=== PATIENT | male | born 1935 | race Caucasian/White ===

== ENCOUNTER 2017-03-22 17:31 | Inpatient (IN) | payer MEDICARE, BC ==
[2017-03-22] VITALS (152 sets, daily range): BP systolic 124–133; BP diastolic 85–89; PULSE 91–92; TEMP 98–98.3; O2SAT 93–97
[~2017-03-22] VITALS: Ht 172.7 cm; Wt 101.6 kg
[~2017-03-22 17:31] MED LIST: ALDACTONE 25MG25 M1 PO; ALEVE 220MG220 MG PO; ASPIR-LOW81 MG PO; CALCIUM 600MG+D1 TAB PO; COUMADIN 22.5 MG/TAB PO; ESCITALOPRAM; HALCION 0.0.125 MG/T PO; LEXAPRO20 MG PO; MILLIPRED DP5 MG PO; PERCOCET 325 MG1 TA2 PO; PREDNISONE 5MG5 MG PO; PREDNISONE10 MG PO; PRILOSEC10 MG PO; PROTONIX 40MG T40 MG PO; TOPROL; TYLENOL 500MG500 MG PO; ULTRAM 50MG TAB50 MG PO; XARELTO STARTER20 MG PO; ZOCOR 10MG10 MG PO; [UNRECOGNIZED DRUG - CODE]
[2017-03-22] MEDS ORDERED: XANAX .25M0.25 MG/TA PO (17:49)
[2017-03-22] MEDS ORDERED: REGLAN 5MG T5 MG/TAB PO (17:50)
[2017-03-22] MEDS ORDERED: PREDNISONE10 MG PO (17:51)
[2017-03-22] MEDS ORDERED: OMEGA-31 SGL PO (17:55)
[2017-03-22 18:05] LABS: BASO % 0.3 % (0.0-2.0); EOS # 0.1 (0.0-0.7); EOS % 0.7 % (0-4.0); GRAN # 10.8 (1.4-6.5); GRAN % 74.8 % (42.2-75.2); HEMATOCRIT 47.2 % (42.0-52.0); HEMOGLOBIN 15.3 g/dl (13.5-18.0); LYMPH # 2.5 (1.2-3.4); LYMPH % 17.1 % (20.0-51.0); MEAN CELL VOLUME 85 fl (80.0-100.0); MEAN CORPUSCULAR HEMOGLOBIN 28 pg (27.0-31.0); MEAN CORPUSCULAR HGB CONC 32 g/dl (33.0-37.0); MEAN PLATELET VOLUME 9.6 fl (7.4-10.4); MONO # 0.9 (0.1-0.6); MONO % 5.9 % (1.7-9.3); PLATELET COUNT 133 K/mm3 (130-400); RED BLOOD COUNT 5.54 M/mm3 (4.20-5.60); REDCELL DISTRIBUTION WIDTH-CV 14.8 % (11.5-14.5); WHITE BLOOD COUNT 14.4 K/mm3 (4.8-10.8)
[2017-03-22 18:09] LABS: INR 1.1 (0.8-3.0); PROTHROMBIN TIME 12.3 SECONDS (9.7-12.8)
[2017-03-22 18:12] LABS: PARTIAL THROMBOPLASTIN TIME 24.3 SECONDS (26.0-37.0)
[2017-03-22 18:15] LABS: ADJUSTED CALCIUM 9.4 mg/dL (8.4-10.2); ALBUMIN 3.6 gm/dL (3.5-5.0); BILIRUBIN,TOTAL 0.6 mg/dL (0.0-1.0); CALCIUM 9.1 mg/dL (8.4-10.2); CREATININE, serum 0.92 mg/dL (0.66-1.25); TOTAL PROTEIN 6.9 gm/dL (6.4-8.2)
[2017-03-22 18:25] LABS: ARTERIAL BLD GAS O2 SATURATION 94.9 % (92-100); ARTERIAL BLD GAS TCO2 CT 22.7; ARTERIAL BLOOD GAS BASE EXCESS -1.6 (-2-2); ARTERIAL BLOOD GAS HCO3 21.7 meq/L (22-26); ARTERIAL BLOOD GAS PHT 7.44 C (7.35-7.45); ARTERIAL BLOOD GAS PO2 74.1 mmHg (80-100); ARTERIAL BLOOD GAS PO2T 74.1 (80-100); ARTERIAL BLOOD GAS pH 7.44 (7.35-7.45); OXYHEMOGLOBIN 94.1 %
[2017-03-22 18:27] LABS: ATS? YES
[2017-03-22 18:28] LABS: TROPONIN-I 0.13 ng/mL (0.000-0.034)
[2017-03-23] VITALS (621 sets, daily range): BP systolic 96–143; BP diastolic 77–91; PULSE 72–93; TEMP 97.6–98.9; O2SAT 87–97
[2017-03-23 06:21] LABS: BASO % 0.2 % (0.0-2.0); EOS # 0.1 (0.0-0.7); EOS % 0.7 % (0-4.0); GRAN # 8.3 (1.4-6.5); HEMATOCRIT 42.5 % (42.0-52.0); HEMOGLOBIN 13.6 g/dl (13.5-18.0); LYMPH # 2.8 (1.2-3.4); LYMPH % 21.9 % (20.0-51.0); MEAN CELL VOLUME 86 fl (80.0-100.0); MEAN CORPUSCULAR HEMOGLOBIN 28 pg (27.0-31.0); MEAN CORPUSCULAR HGB CONC 32 g/dl (33.0-37.0); MEAN PLATELET VOLUME 9.7 fl (7.4-10.4); MONO # 1.4 (0.1-0.6); MONO % 11.2 % (1.7-9.3); PLATELET COUNT 137 K/mm3 (130-400); RED BLOOD COUNT 4.93 M/mm3 (4.20-5.60); REDCELL DISTRIBUTION WIDTH-CV 15.1 % (11.5-14.5); WHITE BLOOD COUNT 12.8 K/mm3 (4.8-10.8)
[2017-03-23 06:38] LABS: CALCIUM 9.3 mg/dL (8.4-10.2); CREATININE, serum 0.94 mg/dL (0.66-1.25); POTASSIUM 4.2 mmol/L (3.4-5.0)
[2017-03-23 06:54] LABS: TROPONIN-I 1.6 ng/mL (0.000-0.034)
[2017-03-24] MEDS ORDERED: MIRALAX PA17 GM/Dose PO (01:13)
[2017-03-24] MEDS ORDERED: LIQUIFILM TEARS15 ML OU (01:18)
[2017-03-24 04:19] VITALS: BP 141/79; PULSE 80; TEMP 98.7
[2017-03-24 07:52] VITALS: BP 138/83; PULSE 73; TEMP 97.8
[2017-03-24 10:52] LABS: PROTEIN C ACTIVITY 117 % (70-150)
[2017-03-24 12:36] LABS: PROTEIN S ACTIVITY 181 % (65-149)
[2017-03-24 13:06] VITALS: BP 144/97; PULSE 92; TEMP 97.6
[2017-03-24 15:34] VITALS: BP 120/85; PULSE 92; TEMP 97.8
[2017-03-24 19:58] VITALS: BP 120/78; PULSE 90; TEMP 98.4
[2017-03-24 23:46] VITALS: BP 137/83; PULSE 73; TEMP 98.7
[2017-03-25 03:27] VITALS: BP 134/77; PULSE 65; TEMP 97.5
[2017-03-25 07:04] LABS: BASO % 0.2 % (0.0-2.0); EOS # 0.1 (0.0-0.7); EOS % 0.8 % (0-4.0); GRAN # 6.9 (1.4-6.5); GRAN % 65.2 % (42.2-75.2); HEMATOCRIT 41.7 % (42.0-52.0); HEMOGLOBIN 13.4 g/dl (13.5-18.0); LYMPH # 2.2 (1.2-3.4); LYMPH % 20.6 % (20.0-51.0); MEAN CELL VOLUME 86 fl (80.0-100.0); MEAN CORPUSCULAR HEMOGLOBIN 28 pg (27.0-31.0); MEAN CORPUSCULAR HGB CONC 32 g/dl (33.0-37.0); MEAN PLATELET VOLUME 9.7 fl (7.4-10.4); MONO # 1.3 (0.1-0.6); MONO % 12.3 % (1.7-9.3); PLATELET COUNT 133 K/mm3 (130-400); RED BLOOD COUNT 4.85 M/mm3 (4.20-5.60); WHITE BLOOD COUNT 10.5 K/mm3 (4.8-10.8)
[2017-03-25 07:08] LABS: INR 1.3 (0.8-3.0); PROTHROMBIN TIME 14.2 SECONDS (9.7-12.8)
[2017-03-25 08:02] VITALS: BP 149/84; PULSE 67; TEMP 97.5
[2017-03-25 09:03] LABS: CALCIUM 9.2 mg/dL (8.4-10.2); CREATININE, serum 0.85 mg/dL (0.66-1.25); POTASSIUM 4.2 mmol/L (3.4-5.0)
[2017-03-25 09:28] LABS: FACTOR V LEIDEN MUTATION B Negative (Negative)
[2017-03-25 10:56] LABS: VON WILLEBRAND FACTOR ANTIGEN 427 % (55 - 200)
[2017-03-25 11:29] VITALS: BP 127/61; PULSE 73; TEMP 97.6
[2017-03-25 16:11] VITALS: BP 153/88; BP 161/96; PULSE 88; TEMP 98
[2017-03-25 19:52] VITALS: BP 149/76; PULSE 69; TEMP 98.3
[2017-03-25 22:55] VITALS: BP 112/48; BP 134/86; PULSE 59; PULSE 73; TEMP 98.2
[2017-03-26 03:03] VITALS: BP 137/86; PULSE 70; TEMP 98.3
[2017-03-26 07:20] LABS: HEMATOCRIT 39.5 % (42.0-52.0); HEMOGLOBIN 12.8 g/dl (13.5-18.0)
[2017-03-26 08:02] VITALS: BP 126/73; PULSE 67; TEMP 98
[2017-03-26 08:23] LABS: INR 1.4 (0.8-3.0); PROTHROMBIN TIME 15.9 SECONDS (9.7-12.8)
[2017-03-26 11:59] VITALS: BP 155/92; PULSE 89; TEMP 97.6
[2017-03-26 15:36] LABS: .ANTICARDIOLIPIN IGG <9.4 GPL (())
[2017-03-26 16:14] VITALS: BP 155/76; PULSE 74; TEMP 98.6
[2017-03-26 20:40] VITALS: BP 116/87; PULSE 82; TEMP 97.5
[2017-03-27 00:10] VITALS: BP 133/74; PULSE 73; TEMP 97.6
[2017-03-27 04:23] VITALS: BP 143/101; PULSE 73; TEMP 98.7
[2017-03-27 07:58] VITALS: BP 133/83; PULSE 88; TEMP 98.3
[2017-03-27 08:37] LABS: CREATININE, serum 0.82 mg/dL (0.66-1.25); POTASSIUM 3.9 mmol/L (3.4-5.0)
[2017-03-27 11:05] VITALS: BP 162/77; PULSE 85; TEMP 98.3
[2017-03-27 15:56] VITALS: BP 136/90; PULSE 99
[2017-03-27 19:46] VITALS: BP 136/78; PULSE 89; TEMP 97.8
[2017-03-28] VITALS (7 sets, daily range): BP systolic 110–156; BP diastolic 77–93; PULSE 73–89; TEMP 93–98.2
[2017-03-28 07:05] LABS: BASO # 0.1 (0.0-0.2); BASO % 0.4 % (0.0-2.0); EOS # 0.2 (0.0-0.7); EOS % 1.5 % (0-4.0); GRAN % 63.2 % (42.2-75.2); HEMATOCRIT 39.3 % (42.0-52.0); HEMOGLOBIN 12.8 g/dl (13.5-18.0); LYMPH # 2.8 (1.2-3.4); LYMPH % 21.8 % (20.0-51.0); MEAN CELL VOLUME 85 fl (80.0-100.0); MEAN CORPUSCULAR HEMOGLOBIN 28 pg (27.0-31.0); MEAN CORPUSCULAR HGB CONC 33 g/dl (33.0-37.0); MEAN PLATELET VOLUME 10.9 fl (7.4-10.4); MONO # 1.5 (0.1-0.6); MONO % 11.9 % (1.7-9.3); PLATELET COUNT 168 K/mm3 (130-400); RED BLOOD COUNT 4.64 M/mm3 (4.20-5.60); REDCELL DISTRIBUTION WIDTH-CV 14.9 % (11.5-14.5); WHITE BLOOD COUNT 12.6 K/mm3 (4.8-10.8)
[2017-03-28 08:11] LABS: INR 4.5 (0.8-3.0); PROTHROMBIN TIME 53.5 SECONDS (9.7-12.8)
[2017-03-29] VITALS (9 sets, daily range): BP systolic 106–149; BP diastolic 47–81; PULSE 55–104; TEMP 97.7–98.5
[2017-03-29 07:53] LABS: BASO % 0.4 % (0.0-2.0); EOS # 0.3 (0.0-0.7); EOS % 3.1 % (0-4.0); GRAN # 6.5 (1.4-6.5); GRAN % 58.5 % (42.2-75.2); HEMATOCRIT 37.7 % (42.0-52.0); HEMOGLOBIN 12.3 g/dl (13.5-18.0); LYMPH # 2.9 (1.2-3.4); MEAN CELL VOLUME 85 fl (80.0-100.0); MEAN CORPUSCULAR HEMOGLOBIN 28 pg (27.0-31.0); MEAN CORPUSCULAR HGB CONC 33 g/dl (33.0-37.0); MEAN PLATELET VOLUME 10.2 fl (7.4-10.4); MONO # 1.2 (0.1-0.6); MONO % 10.6 % (1.7-9.3); PLATELET COUNT 167 K/mm3 (130-400); RED BLOOD COUNT 4.42 M/mm3 (4.20-5.60); REDCELL DISTRIBUTION WIDTH-CV 14.9 % (11.5-14.5); WHITE BLOOD COUNT 11.1 K/mm3 (4.8-10.8)
[2017-03-29 07:54] LABS: INR 5.7 (0.8-3.0); PROTHROMBIN TIME 67.5 SECONDS (9.7-12.8)
[2017-03-29 07:59] LABS: CREATININE, serum 0.89 mg/dL (0.66-1.25); POTASSIUM 3.5 mmol/L (3.4-5.0)
[2017-03-29 12:35] LABS: FACTOR II ACTIVITY 112 % (72-140)
[2017-03-30 04:19] VITALS: BP 150/70; PULSE 86; TEMP 98.6
[2017-03-30 07:19] VITALS: BP 131/74; PULSE 66; TEMP 97.9
[2017-03-30 07:42] LABS: BASO % 0.4 % (0.0-2.0); EOS # 0.3 (0.0-0.7); EOS % 2.5 % (0-4.0); GRAN # 6.3 (1.4-6.5); GRAN % 59.5 % (42.2-75.2); HEMATOCRIT 40.9 % (42.0-52.0); HEMOGLOBIN 13.2 g/dl (13.5-18.0); LYMPH # 2.8 (1.2-3.4); LYMPH % 26.3 % (20.0-51.0); MEAN CELL VOLUME 87 fl (80.0-100.0); MEAN CORPUSCULAR HEMOGLOBIN 28 pg (27.0-31.0); MEAN CORPUSCULAR HGB CONC 32 g/dl (33.0-37.0); MEAN PLATELET VOLUME 9.8 fl (7.4-10.4); MONO % 9.9 % (1.7-9.3); PLATELET COUNT 197 K/mm3 (130-400); RED BLOOD COUNT 4.73 M/mm3 (4.20-5.60); REDCELL DISTRIBUTION WIDTH-CV 15.1 % (11.5-14.5); WHITE BLOOD COUNT 10.6 K/mm3 (4.8-10.8)
[2017-03-30 07:46] LABS: INR 3.8 (0.8-3.0); PROTHROMBIN TIME 44.6 SECONDS (9.7-12.8)
[2017-03-30] MEDS ORDERED: LASIX 40MG TABL40 MG PO (07:51)
[2017-03-30 08:22] VITALS: BP 164/95; PULSE 78; TEMP 98.1
[2017-03-30] MEDS ORDERED: K-TAB20 PO (09:30)
[2017-03-30] MEDS ORDERED: COUMADIN 22.5 MG/TAB PO (09:32)
[2017-03-30 10:57] VITALS: BP 153/78; PULSE 93; TEMP 98.5
== END 2017-03-30 11:40 | disposition home health service (06) | DRG 175 ==
LOC: COL.ER 17:31 → IMCU 19:23 → MEDICAL 03-23 16:43
PROVIDERS: Emergency Medicine; Internal Medicine; Internal Medicine Cardiovascular Disease; Nurse Practitioner Family; Physician Assistant
DX: I26.99 Other pulmonary embolism without acute cor pulmonale (principal); I21.4 Non-ST elevation (NSTEMI) myocardial infarction; I50.23 Acute on chronic systolic (congestive) heart failure; I82.441 Acute embolism and thrombosis of right tibial vein; I82.411 Acute embolism and thrombosis of right femoral vein; M35.3 Polymyalgia rheumatica; Z85.46 Personal history of malignant neoplasm of prostate; M70.21 Olecranon bursitis, right elbow
CPT/HCPCS: 99232-AI; 99233-AI; 99239; A9502; G0103; J1650; J1940; J2212; J2785; J7512; Q9967

== ENCOUNTER 2017-11-27 18:47 | Emergency (ER) | payer MEDICARE, BC ==
[~2017-11-27] VITALS: Ht 20.3 cm; Wt 104.5 kg
[~2017-11-27 18:47] MED LIST changes: +K-TAB20 PO; +LASIX 40MG TABL40 MG PO; +LIQUIFILM TEARS15 ML OU; +MIRALAX PA17 GM/Dose PO; +OMEGA-31 SGL PO; +REGLAN 5MG T5 MG/TAB PO; +XANAX .25M0.25 MG/TA PO
[2017-11-27 18:55] VITALS: TEMP 98
[2017-11-27] MEDS ORDERED: COUMADIN 1MG1 MG/TAB PO (19:15)
[2017-11-27] MEDS ORDERED: METHOTREXA2.5 MG/TAB PO (19:16)
[2017-11-27 19:23] LABS: BASO % 0.2 % (0.0-2.0); GRAN # 9.9 (1.4-6.5); GRAN % 80.6 % (42.2-75.2); HEMATOCRIT 41.9 % (42.0-52.0); HEMOGLOBIN 13.4 g/dl (13.5-18.0); LYMPH # 1.7 (1.2-3.4); LYMPH % 14.2 % (20.0-51.0); MEAN CELL VOLUME 87 fl (80.0-100.0); MEAN CORPUSCULAR HEMOGLOBIN 28 pg (27.0-31.0); MEAN CORPUSCULAR HGB CONC 32 g/dl (33.0-37.0); MEAN PLATELET VOLUME 9.9 fl (7.4-10.4); MONO # 0.6 (0.1-0.6); MONO % 4.7 % (1.7-9.3); PLATELET COUNT 237 K/mm3 (130-400); RED BLOOD COUNT 4.81 M/mm3 (4.20-5.60); REDCELL DISTRIBUTION WIDTH-CV 15.6 % (11.5-14.5)
[2017-11-27 19:25] LABS: INR 2.6 (0.8-3.0); PROTHROMBIN TIME 30.6 SECONDS (9.7-12.8)
[2017-11-27 19:31] LABS: ALBUMIN 4.2 gm/dL (3.5-5.0); BILIRUBIN,TOTAL 0.3 mg/dL (0.0-1.0); CALCIUM 9.4 mg/dL (8.4-10.2); CREATININE, serum 0.94 mg/dL (0.66-1.25); POTASSIUM 4.3 mmol/L (3.4-5.0); TOTAL PROTEIN 7.3 gm/dL (6.4-8.2)
[2017-11-27 19:40] LABS: ARTERIAL BLD GAS TCO2 CT 26.2; ARTERIAL BLOOD GAS BASE EXCESS 2.6 (-2-2); ARTERIAL BLOOD GAS HCO3 25.2 meq/L (22-26); ARTERIAL BLOOD GAS PCO2 32.8 mmHg (35-45); ARTERIAL BLOOD GAS PO2 77.4 mmHg (80-100)
[2017-11-27 20:37] VITALS: BP 117/98; PULSE 88
== END 2017-11-27 20:45 | disposition home or self-care (01) ==
LOC: COL.ER 18:47
PROVIDERS: Family Medicine
DX: R06.00 Dyspnea, unspecified (principal)

== ENCOUNTER → 2018-03-28 | Outpatient (CLI) | payer MEDICARE, BC ==
[~2018-03-28] MED LIST changes: +COUMADIN 1MG1 MG/TAB PO; +METHOTREXA2.5 MG/TAB PO
== END ==
LOC: COL.PUL 09:24
DX: R06.02 Shortness of breath (principal)

== ENCOUNTER → 2018-04-07 | Outpatient (CLI) | payer MEDICARE, BC | LOC: COL.PUL 12:58 | DX: R06.02 Shortness of breath (principal); Z87.891 Personal history of nicotine dependence | CPT/HCPCS: J7674 ==

== ENCOUNTER 2018-04-13 18:13 | Emergency (ER) | payer MEDICARE, BC ==
[~2018-04-13] VITALS: Ht 172.7 cm; Wt 100.0 kg
[2018-04-13 18:15] VITALS: TEMP 98.6
[2018-04-13 19:04] LABS: BASO % 0.1 % (0.0-2.0); EOS % 0.1 % (0-4.0); GRAN # 10.7 (1.4-6.5); GRAN % 76.7 % (42.2-75.2); HEMATOCRIT 44.1 % (42.0-52.0); HEMOGLOBIN 14.3 g/dl (13.5-18.0); LYMPH # 1.9 (1.2-3.4); LYMPH % 13.4 % (20.0-51.0); MEAN CELL VOLUME 86 fl (80.0-100.0); MEAN CORPUSCULAR HEMOGLOBIN 28 pg (27.0-31.0); MEAN CORPUSCULAR HGB CONC 32 g/dl (33.0-37.0); MEAN PLATELET VOLUME 9.2 fl (7.4-10.4); MONO # 1.1 (0.1-0.6); PLATELET COUNT 229 K/mm3 (130-400); RED BLOOD COUNT 5.15 M/mm3 (4.20-5.60); REDCELL DISTRIBUTION WIDTH-CV 18.8 % (11.5-14.5)
[2018-04-13 19:09] LABS: INR 1.9 (0.8-3.0); PROTHROMBIN TIME 21.5 SECONDS (9.7-12.8)
[2018-04-13] MEDS ORDERED: K-DUR20 MEQ PO (19:13)
[2018-04-13 19:30] LABS: ALBUMIN 3.9 gm/dL (3.5-5.0); BILIRUBIN,TOTAL 0.3 mg/dL (0.0-1.0); CALCIUM 9.5 mg/dL (8.4-10.2); CREATININE, serum 1.03 mg/dL (0.66-1.25); POTASSIUM 4.3 mmol/L (3.4-5.0); TOTAL PROTEIN 7.1 gm/dL (6.4-8.2)
[2018-04-13 20:09] VITALS: BP 137/88
[2018-04-13 20:45] VITALS: PULSE 72
== END 2018-04-13 20:45 | disposition home or self-care (01) ==
LOC: COL.ER 18:13
PROVIDERS: Emergency Medicine
DX: S51.812A Laceration without foreign body of left forearm, initial encounter (principal); R42 Dizziness and giddiness; K21.9 Gastro-esophageal reflux disease without esophagitis; Z23 Encounter for immunization; Z86.718 Personal history of other venous thrombosis and embolism; Z86.711 Personal history of pulmonary embolism; Z79.01 Long term (current) use of anticoagulants; W18.39XA Other fall on same level, initial encounter

== ENCOUNTER 2018-07-28 15:54 | Outpatient (RCR) | payer MEDICARE, BC ==
[~2018-07-28 15:54] MED LIST changes: +ASPIRIN E.C. 8181 MG PO; +BRILINTA90 MG PO; -COUMADIN 1MG1 MG/TAB PO; +FLOVENT 110MCG7.9 GM IH; +K-DUR20 MEQ PO; +LIPITOR 40MG TA40 MG PO; +NASACORT OTC NS; +OMEGA-3 1000 MG1 CAP PO; +TOPROL XL 25MG25 MG PO; +VENTOLIN0.09 MG IH
[2018-07-29] MEDS ORDERED: TOPROL XL 25MG25 MG PO (12:56)
[2018-07-29] MEDS ORDERED: PLAVIX 75MG TAB75 MG PO (13:07)
[2018-07-29] MEDS ORDERED: FOSAMAX 70MG TA70 MG PO (13:08)
[2018-07-29] MEDS ORDERED: LIPITOR 10MG10 MG PO (13:10)
[2018-07-29] MEDS ORDERED: AMOXICILLIN 50500 MG PO (13:10)
[2018-08-04] MEDS ORDERED: CEPHALEXIN500 M1 PO (11:59)
[2018-08-04] MEDS ORDERED: ASPIRIN 81M81 MG/TA2 PO (12:00)
[2018-08-04] MEDS ORDERED: PERCOCET 325 MG1 TA2 PO (12:00)
[2018-08-04] MEDS ORDERED: XANAX .25M0.25 MG/TA PO (12:01)
[2018-08-04] MEDS ORDERED: FERROUS SU325 MG/TAB PO (12:08)
[2018-08-06] MEDS ORDERED: DOXYCYCLINE 10100 MG PO (14:08)
[2018-08-06] MEDS ORDERED: CEPHALEXIN500 M1 PO (14:08)
[2018-08-29] MEDS ORDERED: BUSPAR10 MG PO (09:44)
[2018-08-29] MEDS ORDERED: 00186-0372-20 IH (09:54)
[2018-08-29] MEDS ORDERED: NATURAL IRON65 MG PO (09:56)
[2018-08-29] MEDS ORDERED: MELAT3MGTAB PO (09:59)
[2018-08-31] MEDS ORDERED: BETAPACE 80MG80 MG PO (09:28)
== END 2018-10-26 | disposition home or self-care (01) ==
LOC: COL.CR
DX: Z48.812 Encounter for surgical aftercare following surgery on the circulatory system (principal); Z95.5 Presence of coronary angioplasty implant and graft

== ENCOUNTER 2018-07-29 12:33 | Emergency (ER) | payer MEDICARE, BC ==
[2018-07-29 12:36] VITALS: TEMP 98.5
[2018-07-29 12:55] LABS: BASO % 0.1 % (0.0-2.0); GRAN # 14.6 (1.4-6.5); GRAN % 88.3 % (42.2-75.2); HEMATOCRIT 38.9 % (42.0-52.0); HEMOGLOBIN 12.7 g/dl (13.5-18.0); LYMPH % 6.2 % (20.0-51.0); MEAN CELL VOLUME 91 fl (80.0-100.0); MEAN CORPUSCULAR HEMOGLOBIN 30 pg (27.0-31.0); MEAN CORPUSCULAR HGB CONC 33 g/dl (33.0-37.0); MEAN PLATELET VOLUME 9.9 fl (7.4-10.4); MONO # 0.6 (0.1-0.6); MONO % 3.9 % (1.7-9.3); PLATELET COUNT 206 K/mm3 (130-400); RED BLOOD COUNT 4.29 M/mm3 (4.20-5.60); REDCELL DISTRIBUTION WIDTH-CV 16.6 % (11.5-14.5)
[2018-07-29] MEDS ORDERED: TOPROL XL 25MG25 MG PO (12:56)
[2018-07-29 13:06] LABS: ALBUMIN 3.8 gm/dL (3.5-5.0); BILIRUBIN,TOTAL 0.7 mg/dL (0.0-1.0); CALCIUM 9.1 mg/dL (8.4-10.2); CREATININE, serum 1.22 mg/dL (0.66-1.25); POTASSIUM 4.4 mmol/L (3.4-5.0); TOTAL PROTEIN 6.7 gm/dL (6.4-8.2)
[2018-07-29] MEDS ORDERED: PLAVIX 75MG TAB75 MG PO (13:07)
[2018-07-29 13:08] LABS: INR 1.2 (0.8-3.0); PROTHROMBIN TIME 13.5 SECONDS (9.7-12.8)
[2018-07-29] MEDS ORDERED: FOSAMAX 70MG TA70 MG PO (13:08)
[2018-07-29 13:10] LABS: PARTIAL THROMBOPLASTIN TIME 23.5 SECONDS (26.0-37.0)
[2018-07-29] MEDS ORDERED: AMOXICILLIN 50500 MG PO (13:10)
[2018-07-29] MEDS ORDERED: LIPITOR 10MG10 MG PO (13:10)
[2018-07-29 13:18] LABS: TROPONIN-I 0.086 ng/mL (0.000-0.034)
[2018-07-29 15:15] VITALS: BP 112/66; PULSE 82
== END 2018-07-29 15:21 | disposition home or self-care (01) ==
LOC: COL.ER 12:33
PROVIDERS: Emergency Medicine
DX: S41.112A Laceration without foreign body of left upper arm, initial encounter (principal); I10 Essential (primary) hypertension; I25.10 Atherosclerotic heart disease of native coronary artery without angina pectoris; Z98.890 Other specified postprocedural states; Z91.81 History of falling; Z79.01 Long term (current) use of anticoagulants; Z79.51 Long term (current) use of inhaled steroids; Z86.718 Personal history of other venous thrombosis and embolism; Z86.711 Personal history of pulmonary embolism; W19.XXXA Unspecified fall, initial encounter; Y92.009 Unspecified place in unspecified non-institutional (private) residence as the place of occurrence of the external cause
CPT/HCPCS: J7040

== ENCOUNTER 2018-08-06 11:39 | Emergency (ER) | payer MEDICARE, BC ==
[~2018-08-06] VITALS: Ht 172.7 cm; Wt 100.0 kg
[~2018-08-06 11:39] MED LIST changes: +AMOXICILLIN 50500 MG PO; +ASPIRIN 81M81 MG/TA2 PO; +CEPHALEXIN500 M1 PO; +FERROUS SU325 MG/TAB PO; +FOSAMAX 70MG TA70 MG PO; +LIPITOR 10MG10 MG PO; +PLAVIX 75MG TAB75 MG PO
[2018-08-06 11:46] VITALS: TEMP 98.5
[2018-08-06 12:56] LABS: BASO % 0.1 % (0.0-2.0); EOS # 0.1 (0.0-0.7); EOS % 0.6 % (0-4.0); GRAN # 8.9 (1.4-6.5); GRAN % 76.7 % (42.2-75.2); HEMOGLOBIN 10.6 g/dl (13.5-18.0); LYMPH # 1.5 (1.2-3.4); LYMPH % 12.4 % (20.0-51.0); MEAN CELL VOLUME 93 fl (80.0-100.0); MEAN CORPUSCULAR HEMOGLOBIN 29 pg (27.0-31.0); MEAN CORPUSCULAR HGB CONC 32 g/dl (33.0-37.0); MEAN PLATELET VOLUME 9.2 fl (7.4-10.4); MONO # 1.1 (0.1-0.6); MONO % 9.3 % (1.7-9.3); PLATELET COUNT 184 K/mm3 (130-400); REDCELL DISTRIBUTION WIDTH-CV 17.1 % (11.5-14.5)
[2018-08-06 12:58] LABS: INR 1.1 (0.8-3.0); PROTHROMBIN TIME 12.2 SECONDS (9.7-12.8)
[2018-08-06 12:59] LABS: HEMATOCRIT 33.3 % (42.0-52.0)
[2018-08-06 13:01] LABS: PARTIAL THROMBOPLASTIN TIME 21.8 SECONDS (26.0-37.0)
[2018-08-06 13:02] LABS: ALBUMIN 3.3 gm/dL (3.5-5.0); BILIRUBIN,TOTAL 0.7 mg/dL (0.0-1.0); CALCIUM 8.7 mg/dL (8.4-10.2); CREATININE, serum 0.85 mg/dL (0.66-1.25); POTASSIUM 4.3 mmol/L (3.4-5.0); TOTAL PROTEIN 5.9 gm/dL (6.4-8.2)
[2018-08-06] MEDS ORDERED: DOXYCYCLINE 10100 MG PO (14:08)
[2018-08-06] MEDS ORDERED: CEPHALEXIN500 M1 PO (14:08)
[2018-08-06 14:32] VITALS: BP 132/70; PULSE 80
== END 2018-08-06 14:33 | disposition home or self-care (01) ==
LOC: COL.ER 11:39
PROVIDERS: Emergency Medicine
DX: L03.114 Cellulitis of left upper limb (principal); I25.10 Atherosclerotic heart disease of native coronary artery without angina pectoris; Z86.711 Personal history of pulmonary embolism; Z86.718 Personal history of other venous thrombosis and embolism; Z79.82 Long term (current) use of aspirin; Z79.02 Long term (current) use of antithrombotics/antiplatelets

== ENCOUNTER 2018-08-29 08:17 | Inpatient (IN) | payer MEDICARE, BC ==
[~2018-08-29] VITALS: Ht 172.7 cm; Wt 96.8 kg
[~2018-08-29 08:17] MED LIST changes: +DOXYCYCLINE 10100 MG PO
[2018-08-29] MEDS ORDERED: BUSPAR10 MG PO (09:44)
[2018-08-29] MEDS ORDERED: 00186-0372-20 IH (09:54)
[2018-08-29] MEDS ORDERED: NATURAL IRON65 MG PO (09:56)
[2018-08-29] MEDS ORDERED: MELAT3MGTAB PO (09:59)
[2018-08-29 11:07] VITALS: BP 150/79; PULSE 71; TEMP 97.9
[2018-08-29 11:23] LABS: BASO % 0.1 % (0.0-2.0); EOS % 0.1 % (0-4.0); GRAN # 7.8 (1.4-6.5); GRAN % 82.6 % (42.2-75.2); HEMATOCRIT 37.8 % (42.0-52.0); HEMOGLOBIN 12.1 g/dl (13.5-18.0); LYMPH # 0.7 (1.2-3.4); LYMPH % 7.5 % (20.0-51.0); MEAN CELL VOLUME 93 fl (80.0-100.0); MEAN CORPUSCULAR HEMOGLOBIN 30 pg (27.0-31.0); MEAN CORPUSCULAR HGB CONC 32 g/dl (33.0-37.0); MEAN PLATELET VOLUME 9.5 fl (7.4-10.4); MONO # 0.8 (0.1-0.6); MONO % 8.4 % (1.7-9.3); PLATELET COUNT 149 K/mm3 (130-400); RED BLOOD COUNT 4.05 M/mm3 (4.20-5.60); REDCELL DISTRIBUTION WIDTH-CV 16.3 % (11.5-14.5)
[2018-08-29 11:41] LABS: ALBUMIN 3.3 gm/dL (3.5-5.0); BILIRUBIN,TOTAL 0.3 mg/dL (0.0-1.0); CALCIUM 8.6 mg/dL (8.4-10.2); CREATININE, serum 0.8 mg/dL (0.66-1.25); POTASSIUM 4.1 mmol/L (3.4-5.0)
[2018-08-29 12:10] LABS: THYROID STIMULATING HORMONE 1.34 uIU/mL (0.465-4.680)
[2018-08-29 15:39] VITALS: BP 124/65; PULSE 48; TEMP 97.8
[2018-08-29 20:55] VITALS: BP 154/86; PULSE 57; TEMP 97.4
[2018-08-30] VITALS (7 sets, daily range): BP systolic 108–150; BP diastolic 59–78; PULSE 45–76; TEMP 97.9–98.3
[2018-08-30 06:15] LABS: BASO % 0.1 % (0.0-2.0); EOS % 0.2 % (0-4.0); GRAN # 5.7 (1.4-6.5); GRAN % 70.6 % (42.2-75.2); HEMOGLOBIN 12.3 g/dl (13.5-18.0); LYMPH # 1.6 (1.2-3.4); LYMPH % 19.7 % (20.0-51.0); MEAN CELL VOLUME 91 fl (80.0-100.0); MEAN CORPUSCULAR HEMOGLOBIN 30 pg (27.0-31.0); MEAN CORPUSCULAR HGB CONC 32 g/dl (33.0-37.0); MEAN PLATELET VOLUME 9.6 fl (7.4-10.4); MONO # 0.7 (0.1-0.6); MONO % 8.3 % (1.7-9.3); PLATELET COUNT 148 K/mm3 (130-400); RED BLOOD COUNT 4.16 M/mm3 (4.20-5.60)
[2018-08-30 06:27] LABS: CALCIUM 8.8 mg/dL (8.4-10.2); CREATININE, serum 0.84 mg/dL (0.66-1.25); POTASSIUM 4.2 mmol/L (3.4-5.0)
[2018-08-31 01:31] VITALS: BP 112/52; PULSE 58; TEMP 97.4
[2018-08-31 05:08] VITALS: BP 124/53; PULSE 47; TEMP 98.3
[2018-08-31 08:15] VITALS: BP 118/68; PULSE 46; TEMP 98.2
[2018-08-31 09:12] LABS: CALCIUM 8.7 mg/dL (8.4-10.2); CREATININE, serum 0.87 mg/dL (0.66-1.25); MAGNESIUM 2.2 mg/dL (1.6-2.3)
[2018-08-31 09:28] LABS: POTASSIUM 4.3 mmol/L (3.4-5.0)
[2018-08-31] MEDS ORDERED: BETAPACE 80MG80 MG PO (09:28)
== END 2018-08-31 12:03 | disposition home health service (06) | DRG 310 ==
LOC: MEDICAL 08:17
DX: I48.0 Paroxysmal atrial fibrillation (principal); Z51.81 Encounter for therapeutic drug level monitoring; Z95.5 Presence of coronary angioplasty implant and graft; I25.10 Atherosclerotic heart disease of native coronary artery without angina pectoris; Z91.81 History of falling; G47.33 Obstructive sleep apnea (adult) (pediatric); E66.8 Other obesity; Z68.32 Body mass index [BMI] 32.0-32.9, adult; I10 Essential (primary) hypertension; Z86.718 Personal history of other venous thrombosis and embolism; Z85.46 Personal history of malignant neoplasm of prostate
CPT/HCPCS: J7512

== ENCOUNTER 2019-02-05 14:55 | Outpatient (RCR) | payer MEDICARE, BC ==
[~2019-02-05 14:55] MED LIST changes: +00186-0372-20 IH; +BETAPACE 80MG80 MG PO; +BUSPAR10 MG PO; +MELAT3MGTAB PO; +NATURAL IRON65 MG PO
[2019-02-12] MEDS ORDERED: RT ADVAIR 228 DISKUS (16:59)
[2019-02-12] MEDS ORDERED: FOSAMAX 70MG TA70 MG PO ×2 (17:00→20:35)
[2019-02-12] MEDS ORDERED: OMEGA-3 1000 MG1 CAP PO (17:02)
[2019-02-12] MEDS ORDERED: LASIX 40MG TABL40 MG PO (17:03)
[2019-02-12] MEDS ORDERED: CLARITIN 1010 MG/TAB PO (17:04)
[2019-02-12] MEDS ORDERED: INCRUSE EL62.5 MCG/A (17:04)
[2019-02-12] MEDS ORDERED: ATROVENTNS0.03% (17:04)
[2019-02-12] MEDS ORDERED: K-TAB20 PO (17:05)
[2019-02-12] MEDS ORDERED: OS-CAL 500 + D1 TAB (20:38)
[2019-02-13] MEDS ORDERED: RT ADVAIR 228 DISKUS IH (03:15)
[2019-02-14] MEDS ORDERED: RESTORIL 1515 MG/CAP PO (13:45)
[2019-02-14] MEDS ORDERED: NAMENDA5 MG PO (13:48)
== END 2019-02-18 | disposition home or self-care (01) ==
LOC: COL.CR
DX: Z48.812 Encounter for surgical aftercare following surgery on the circulatory system (principal); Z95.5 Presence of coronary angioplasty implant and graft

== ENCOUNTER 2019-02-12 16:23 | Observation (INO) | payer MEDICARE, BC ==
[~2019-02-12] VITALS: Ht 172.7 cm; Wt 97.6 kg
[2019-02-12 16:50] LABS: BASO % 0.4 % (0.0-2.0); EOS # 0.1 (0.0-0.7); EOS % 0.5 % (0-4.0); GRAN # 7.5 (1.4-6.5); HEMATOCRIT 45.1 % (42.0-52.0); HEMOGLOBIN 14.6 g/dl (13.5-18.0); LYMPH # 2.3 (1.2-3.4); LYMPH % 20.2 % (20.0-51.0); MEAN CELL VOLUME 91 fl (80.0-100.0); MEAN CORPUSCULAR HEMOGLOBIN 30 pg (27.0-31.0); MEAN CORPUSCULAR HGB CONC 32 g/dl (33.0-37.0); MEAN PLATELET VOLUME 9.9 fl (7.4-10.4); MONO # 1.3 (0.1-0.6); MONO % 11.2 % (1.7-9.3); PLATELET COUNT 187 K/mm3 (130-400); RED BLOOD COUNT 4.94 M/mm3 (4.20-5.60); REDCELL DISTRIBUTION WIDTH-CV 15.4 % (11.5-14.5)
[2019-02-12 16:53] LABS: INR 1.1 (0.8-3.0); PROTHROMBIN TIME 12.1 SECONDS (9.7-12.8)
[2019-02-12 16:59] LABS: ALANINE AMINOTRANSFERASE 20 U/L (21-72); ALBUMIN 3.9 gm/dL (3.5-5.0); ALKALINE PHOSPHATASE 50 U/L (50-136); ANION GAP 12 mmol/L (7-16); AST,SGOT 40 U/L (15-37); BILIRUBIN,TOTAL 0.8 mg/dL (0.0-1.0); BLOOD UREA NITROGEN 39 mg/dL (9-20); CALCIUM 9.1 mg/dL (8.4-10.2); CARBON DIOXIDE 26 mmol/L (22-30); CHLORIDE 104 mmol/L (98-107); CREATININE, serum 1.17 (0.66-1.25); GLUCOSE 132 mg/dL (74-106); SODIUM 142 mmol/L (137-145)
[2019-02-12] MEDS ORDERED: RT ADVAIR 228 DISKUS (16:59)
[2019-02-12] MEDS ORDERED: FOSAMAX 70MG TA70 MG PO ×2 (17:00→20:35)
[2019-02-12] MEDS ORDERED: OMEGA-3 1000 MG1 CAP PO (17:02)
[2019-02-12] MEDS ORDERED: LASIX 40MG TABL40 MG PO (17:03)
[2019-02-12] MEDS ORDERED: CLARITIN 1010 MG/TAB PO (17:04)
[2019-02-12] MEDS ORDERED: INCRUSE EL62.5 MCG/A (17:04)
[2019-02-12] MEDS ORDERED: ATROVENTNS0.03% (17:04)
[2019-02-12] MEDS ORDERED: K-TAB20 PO (17:05)
[2019-02-12 17:13] LABS: TROPONIN-I < 0.012 ng/mL (0.000-0.035)
[2019-02-12 19:00] LABS: COLLECTION METHOD CLEAN CATCH
[2019-02-12 19:10] LABS: MUCOUS Present /lpf; PH 5 (5-8); SQUAMOUS EPITHELIAL None Seen /hpf; URINE APPEARANCE Clear; URINE BACTERIA None Seen /hpf; URINE BILIRUBIN Negative (NEGATIVE); URINE BLOOD Negative (NEGATIVE); URINE COLOR Yellow; URINE GLUCOSE Negative (NEGATIVE); URINE KETONE Negative (NEGATIVE); URINE LEUKOCYTE ESTERASE Negative (NEGATIVE); URINE NITRATE Negative (NEGATIVE); URINE PROTEIN(semi-quant) Negative (NEGATIVE); URINE UROBILINOGEN Negative (NEGATIVE)
--- NOTE | 2019-02-12 20:25 | NUR ---
PT ARRIVED TO ROOM 314 ACCOMPANIED BY FAMILY
[2019-02-12 20:33] VITALS: BP 156/86; PULSE 55; TEMP 98.8
[2019-02-12] MEDS ORDERED: OS-CAL 500 + D1 TAB (20:38)
--- NOTE | 2019-02-12 22:54 | NUR ---
patient resting in relciner with family at bedside. Pt was agitated and pacing room, but is now resting his eyes in the recliner. Denies pain. Not oriented to place or time. No further needs at this time.
[2019-02-13 00:29] LABS: ARTERIAL BLD GAS O2 SATURATION 94.1 % (92-100); ARTERIAL BLD GAS TCO2 CT 23.2; ARTERIAL BLOOD GAS BASE EXCESS -0.7 (-2-2); ARTERIAL BLOOD GAS HCO3 22.2 meq/L (22-26); ARTERIAL BLOOD GAS PCO2 32.1 mmHg (35-45); ARTERIAL BLOOD GAS pH 7.46 (7.35-7.45)
[2019-02-13 00:38] VITALS: BP 154/80; PULSE 74; TEMP 98.2
[2019-02-13 00:57] LABS: MAGNESIUM 2.2 mg/dL (1.6-2.3)
[2019-02-13 01:27] LABS: TSH w REFLEX 1.25 uIU/mL (0.465-4.680)
[2019-02-13] MEDS ORDERED: RT ADVAIR 228 DISKUS IH (03:15)
[2019-02-13 03:19] VITALS: BP 127/64; PULSE 55; TEMP 98.2
--- NOTE | 2019-02-13 04:53 | NUR ---
Pt did not sleep much last night, up every 20-30 minutes to change positions or take of CPAP. Put on 2 L NC because pt would keep this on. IVF infusing at 75 mls/hr. Pt resting in recliner with chair alarm on. No further needs at this time.
[2019-02-13 06:22] LABS: BASO % 0.3 % (0.0-2.0); EOS # 0.2 (0.0-0.7); EOS % 2.2 % (0-4.0); GRAN % 64.6 % (42.2-75.2); HEMATOCRIT 43.8 % (42.0-52.0); HEMOGLOBIN 13.8 g/dl (13.5-18.0); LYMPH # 2.2 (1.2-3.4); LYMPH % 20.1 % (20.0-51.0); MEAN CELL VOLUME 93 fl (80.0-100.0); MEAN CORPUSCULAR HEMOGLOBIN 29 pg (27.0-31.0); MEAN CORPUSCULAR HGB CONC 32 g/dl (33.0-37.0); MEAN PLATELET VOLUME 10.1 fl (7.4-10.4); MONO # 1.3 (0.1-0.6); MONO % 12.1 % (1.7-9.3); PLATELET COUNT 153 K/mm3 (130-400); REDCELL DISTRIBUTION WIDTH-CV 15.5 % (11.5-14.5)
[2019-02-13 06:32] LABS: CALCIUM 8.6 mg/dL (8.4-10.2); CREATININE, serum 0.98 (0.66-1.25); POTASSIUM 3.7 mmol/L (3.4-5.0)
--- NOTE | 2019-02-13 07:07 | NUR ---
Received report from off going shift. Patient is in recliner with chair alarm in place. During report patient has been standing, alarm sounding without calling for assist. Denies pain. Call light and personal items are within reach.
--- NOTE | 2019-02-13 07:10 | NUR ---
report given to neel solano
[2019-02-13 07:46] VITALS: BP 128/72; PULSE 62; TEMP 97.9
--- NOTE | 2019-02-13 14:24 | NUR ---
REYNA met with the patient and patient's , Marlo, to discuss discharge plan. The patient lives in [place] with his . The patient's states that their daughter, Pau, lives in [facility] and that their other daughter, Rachel, lives in [facility] and will come down to help out. The patient reports needing occasional assistance with ADLs and has canes, a walking stick, walker, and a CPAP from [employer]. The patient reports that he has had home health services in the past through [facility]. The patient's PCP is Dr. Joesph Cramer and he receives his medications from [facility]. The patient and his report no difficulties obtaining his meds. The patient does not have advanced directives in EMR, but he states that he does have them completed. REYNA then discussed the concerns of the patient's confusion and falls and if he would be interested home health vs post-acute rehab. The patient reports that he feels like he can return home with home health and feels safe, but that him and his would like an update from the doctor or midlevel on his status. REYNA informed the patient's nurse practitioner, Juana. PT/OT have been ordered. SW to continue to follow to ensure a safe discharge.
--- NOTE | 2019-02-13 16:32 | NUR ---
The hospitalist, Dr. Hernandez, met with the patient and patient's to update them on the plan of care. The patient's informed Dr. Hernandez that she would like would like for the patient to return home with her and would be agreeable to home health. Dr. Hernandez updated SW. REYNA then followed up with the patient and patient's . The patient's confirmed plan. SW presented the patient's with [employer]'s list of home health agencies that serve [place]. The patient and patient's report they they have had services from [facility] in the past and chose them again. REYNA then contacted and faxed a referral to Yoshi at [facility]. Yoshi reports that he can meet with the patient tomorrow morning, 02/14. SW to continue to follow.
[2019-02-13 16:38] VITALS: BP 153/87; PULSE 93; TEMP 97.5
--- NOTE | 2019-02-13 18:23 | NUR ---
Patient is in room, has been sitting up in recliner. Does stand frequently setting off chair and bed alarm. Constant reminders are given for safety reasons. Call light and personal items are within reach.
[2019-02-13 18:56] VITALS: BP 136/84; PULSE 95; TEMP 97.3
--- NOTE | 2019-02-13 19:32 | NUR ---
Patient resting at side of bed. Pt confused, and refusing to stay in bed. Bed alarm on. When entering room and asked if pt needed anything pt denies. Back to bed. Order for seroquel given from LEROY Yanes. Patient now in bed, taken evening medications.
[2019-02-13 23:40] VITALS: BP 136/87; PULSE 106; TEMP 97.6
--- NOTE | 2019-02-14 00:46 | NUR ---
pt still not sleeping well, out of bed every 5-10 minutes. LEROY Yanes notified, order to give another dose of seroquel
[2019-02-14 03:49] VITALS: BP 134/73; PULSE 73; TEMP 97.5
[2019-02-14 07:04] VITALS: BP 146/79; PULSE 89; TEMP 98.3
--- NOTE | 2019-02-14 07:04 | NUR ---
Pt did not sleep for more than 45 minutes last night, given seroquel x2. Psyc consult for today. Bed alarm on, call light inreach. On 2 L oxygen via NC as pt did not tolerate home CPAP machine. Report given to DIANE Perez.
[2019-02-14 07:14] LABS: BASO % 0.3 % (0.0-2.0); EOS # 0.1 (0.0-0.7); EOS % 0.5 % (0-4.0); GRAN # 7.9 (1.4-6.5); HEMATOCRIT 42.3 % (42.0-52.0); HEMOGLOBIN 13.6 g/dl (13.5-18.0); LYMPH # 2.2 (1.2-3.4); LYMPH % 18.8 % (20.0-51.0); MEAN CELL VOLUME 91 fl (80.0-100.0); MEAN CORPUSCULAR HEMOGLOBIN 29 pg (27.0-31.0); MEAN CORPUSCULAR HGB CONC 32 g/dl (33.0-37.0); MEAN PLATELET VOLUME 10.8 fl (7.4-10.4); MONO # 1.4 (0.1-0.6); PLATELET COUNT 166 K/mm3 (130-400); RED BLOOD COUNT 4.65 M/mm3 (4.20-5.60)
--- NOTE | 2019-02-14 07:15 | NUR ---
Report received from DIANE Marcum. Pt sitting up at side of bed, alarm going off. Redirected pt back into bed, legs up, tray over lap, ordered his breakfast, alarms on, will continue to monitor.
[2019-02-14 07:30] LABS: CALCIUM 8.5 mg/dL (8.4-10.2); CREATININE, serum 0.93 (0.66-1.25); POTASSIUM 3.4 mmol/L (3.4-5.0)
--- NOTE | 2019-02-14 08:06 | NUR ---
Assessment charted. Pt sitting at side of bed finishing breakfast, ate very well, able to eat independently. Oriented to place and own but not oriented to time at all. Able to carry on a conversation but gets easily distracted and confused and cannot track well. Pulled own IV out this am, restarted new one in LFA. Pt denies pain. Moves all extremeties well. Bruising all over arms, R knee, R mccloud. Pt states he "falls a lot at home". Bed alarms on, will continue to monitor.
[2019-02-14 10:15] VITALS: BP 124/82; PULSE 102; TEMP 97.4
--- NOTE | 2019-02-14 10:15 | NUR ---
Pt fell in room at side of bed, states he "just decided to sit down on the floor". Redness to L flank. Able to get up with assistance of 3 and back to bed, alarms on. in room, David notified. ORders received. VSS. Denies any issues. Will continue to monitor.
[2019-02-14] MEDS ORDERED: RESTORIL 1515 MG/CAP PO (13:45)
[2019-02-14] MEDS ORDERED: NAMENDA5 MG PO (13:48)
--- NOTE | 2019-02-14 14:45 | NUR ---
Discharge teaching completed at this time. Gave and packet. PT has no ability to comprehend or follow with discharge. Up to bathroom as leaving and continues to need guidance for everything. seems to be able to track instructions but at times it is difficult to tell. INT d/c'd, tip intact. Pt escorted out with all belongings via w/c with medical staff, to drive home, criteria met.
--- NOTE | 2019-02-14 15:07 | NUR ---
Yoshi and Ced, from [facility], met with the patient and patient's to discuss additional services that they can provide and private duty services for the patient. The patient's and patient report that they are not ready or interested in private duty services at this time. Yoshi informed REYNA that Ced at [facility] plans to follow up with the patient and patient's in a couple days to discuss private duty services again. The patient is to discharge back home with his today, 02/14, with home health services for mcc/OT/PT through [facility]. REYNA made an APS report due to concerns. APS intake ID#[id number]
== END 2019-02-14 14:40 | disposition home or self-care (01) ==
LOC: COL.ER 16:23 → MEDICAL 18:13
PROVIDERS: Emergency Medicine; Nurse Practitioner Family; ADMIT Internal Medicine
DX: R41.0 Disorientation, unspecified (principal); R29.6 Repeated falls; I10 Essential (primary) hypertension; E78.5 Hyperlipidemia, unspecified; G47.33 Obstructive sleep apnea (adult) (pediatric); Z86.711 Personal history of pulmonary embolism; Z86.718 Personal history of other venous thrombosis and embolism; Z87.39 Personal history of other diseases of the musculoskeletal system and connective tissue; I25.10 Atherosclerotic heart disease of native coronary artery without angina pectoris; Z95.5 Presence of coronary angioplasty implant and graft; K21.9 Gastro-esophageal reflux disease without esophagitis; Z79.51 Long term (current) use of inhaled steroids; Z79.82 Long term (current) use of aspirin; M35.3 Polymyalgia rheumatica; M19.90 Unspecified osteoarthritis, unspecified site; Z85.46 Personal history of malignant neoplasm of prostate; Z79.02 Long term (current) use of antithrombotics/antiplatelets; Z90.79 Acquired absence of other genital organ(s); Z96.611 Presence of right artificial shoulder joint; Z96.612 Presence of left artificial shoulder joint; Z82.49 Family history of ischemic heart disease and other diseases of the circulatory system; F03.90 Unspecified dementia, unspecified severity, without behavioral disturbance, psychotic disturbance, mood disturbance, and anxiety
CPT/HCPCS: A9585; G0378; J1650; J7030; J7512

== ENCOUNTER 2019-05-19 21:22 | Emergency (ER) | payer MEDICARE, BC ==
[~2019-05-19] VITALS: Ht 175.3 cm; Wt 95.5 kg
[~2019-05-19 21:22] MED LIST changes: +ATROVENTNS0.03%; +CLARITIN 1010 MG/TAB PO; +INCRUSE EL62.5 MCG/A INH; +NAMENDA5 MG PO; +OS-CAL 500 + D1 TAB; +RESTORIL 1515 MG/CAP PO; +RT ADVAIR 228 DISKUS; +RT ADVAIR 228 DISKUS IH
[2019-05-19 21:33] VITALS: BP 140/85; PULSE 77; TEMP 97.2
[2019-05-19] MEDS ORDERED: CEPHALEXIN500 M1 PO ×2 (21:55→22:14)
== END 2019-05-19 22:17 | disposition home or self-care (01) ==
LOC: COL.ER 21:22
DX: L03.011 Cellulitis of right finger (principal); I10 Essential (primary) hypertension; J44.9 Chronic obstructive pulmonary disease, unspecified; K21.9 Gastro-esophageal reflux disease without esophagitis; Z79.02 Long term (current) use of antithrombotics/antiplatelets; Z79.51 Long term (current) use of inhaled steroids

== ENCOUNTER 2019-05-21 15:19 | Outpatient (RCR) | payer SELFPAY ==
[2019-05-23] MEDS ORDERED: OMNICEF 300MG300 MG PO (04:40)
[2019-05-23] MEDS ORDERED: ASPIRIN E.C. 8181 MG PO (08:55)
[2019-05-23] MEDS ORDERED: BETAPACE 80MG80 MG PO (08:58)
[2019-05-23] MEDS ORDERED: XANAX .25M0.25 MG/TA PO (09:08)
[2019-05-23] MEDS ORDERED: AMBIEN 10MG10 MG PO (09:09)
[2019-05-23] MEDS ORDERED: CIPRO 500MG TA500 MG PO ×2 (11:45)
[2019-05-23] MEDS ORDERED: BACTRIM DS 8001 TAB PO (11:52)
== END 2019-06-12 | disposition home or self-care (01) ==
LOC: COL.CR
DX: Z02.89 Encounter for other administrative examinations (principal)

== ENCOUNTER 2019-05-23 07:32 | Outpatient (CLI) | payer MEDICARE, BC ==
[~2019-05-23] VITALS: Ht 175.3 cm; Wt 94.0 kg
[~2019-05-23 07:32] MED LIST changes: +OMNICEF 300MG300 MG PO
[2019-05-23 08:10] VITALS: BP 132/81; PULSE 80; TEMP 97.9
[2019-05-23] MEDS ORDERED: ASPIRIN E.C. 8181 MG PO (08:55)
[2019-05-23] MEDS ORDERED: BETAPACE 80MG80 MG PO (08:58)
[2019-05-23] MEDS ORDERED: XANAX .25M0.25 MG/TA PO (09:08)
[2019-05-23] MEDS ORDERED: AMBIEN 10MG10 MG PO (09:09)
--- NOTE | 2019-05-23 09:45 | NUR ---
Pt rigoberto ACTH stim test well. Pt ambulated well with cane s/p test. Pt discharged per w/c by nurse to lobby to meet .
[2019-05-23] MEDS ORDERED: CIPRO 500MG TA500 MG PO ×2 (11:45)
[2019-05-23] MEDS ORDERED: BACTRIM DS 8001 TAB PO (11:52)
[2019-05-26 00:17] LABS: ADRENOCORTICOTROPIC HORMONE <5 pg/mL (5-27)
== END 2019-05-23 11:31 | disposition home or self-care (01) ==
LOC: EUO 07:32
PROVIDERS: Internal Medicine
DX: E27.40 Unspecified adrenocortical insufficiency (principal)
CPT/HCPCS: J0834

== ENCOUNTER → 2021-11-25 | Outpatient (CLI) | payer MEDICARE, BC ==
[~2021-11-25] MED LIST changes: +AMBIEN 10MG10 MG PO; +BACTRIM DS 8001 TAB PO; +CIPRO 500MG TA500 MG PO
== END ==
LOC: COL.RAD 12:52
DX: M25.561 Pain in right knee (principal); M25.562 Pain in left knee; G89.29 Other chronic pain
CPT/HCPCS: J3301; Q9967

== ENCOUNTER → 2022-05-04 | Outpatient (CLI) | payer MEDICARE, BC | LOC: COL.RAD 13:30 | DX: M25.561 Pain in right knee (principal); M25.562 Pain in left knee | CPT/HCPCS: J3301; Q9967 ==